=== PATIENT | male | born 1995 | race Caucasian/White ===

== ENCOUNTER 2016-09-27 04:13 | Emergency (ER) | payer BC, OTHER ==
[~2016-09-27] VITALS: Ht 182.9 cm; Wt 64.1 kg
[2016-09-27 04:17] VITALS: TEMP 36.6; Ht 182.9 cm; Wt 64.1 kg
[2016-09-27] MEDS ORDERED: METOCLOPRAMIDE HCL INJ 5 MG/ML 2 ML VIAL IV STA (04:22)
[2016-09-27] MEDS ORDERED: DiphenhydrAMINE HCL 50 MG/ML VIAL IV STA (04:22)
[2016-09-27] MEDS ORDERED: SODIUM CHLORIDE 0.9% 1000ML 2,000 ML IV STA (04:22)
[2016-09-27] MEDS ORDERED: DICYCLOMINE HCL 10 MG/ML 2 ML AMP IM ONE (04:30)
[2016-09-27 04:56] VITALS: O2SAT 98
[2016-09-27 05:01] LABS: HEMATOCRIT 46.9 % (42-52); MEAN CELL VOLUME 84.1 fL (80-100); MEAN CORPUSCULAR HEMOGLOBIN 31.2 pg (25-34); MEAN CORPUSCULAR HGB CONC 37.1 g/dl (32-36); MEAN PLATELET VOLUME 9.5 fL (7.4-10.4); PLATELET COUNT 219 K/uL (130-400); RED BLOOD COUNT 5.58 M/uL (4.7-6.1); WHITE BLOOD COUNT 15.92 K/uL (4.8-10.8)
[2016-09-27 05:19] LABS: BASO % 0.1 %; BASO ABS # 0.02 K/uL (0-0.2); BUN/CREATININE RATIO 13.7 (10-20); CALCIUM 9.6 mg/dl (8.5-10.1); COMPLETE YES; CREATININE 1.2 mg/dl (0.60-1.40); IG% 0.4 %; LYMPH % 6.5 %; LYMPH ABS # 1.03 K/uL (1.2-3.4); MONO % 8.8 %; NEUT % 82.2 %; POTASSIUM 3.3 mmol/L (3.5-5.1)
[2016-09-27] MEDS ORDERED: POTASSIUM CHLORIDE 10 MEQ TABCR PO STA (05:23)
--- NOTE | 2016-09-27 05:35 | EMERGENCY ROOM VISIT NOTE ---
History First contact with patient: 04:19 Chief Complaint: VOMITING Stated Complaint: ASTHMA ATTACK,POSSIBLE FOOD POISONING Nursing Triage Summary: Patient c/o n/v/d and abdominal pain that began around 2230 last pm. History of Present Illness The patient is a 20 year old male who presents to the Emergency Room with complaints of nausea, vomiting, diarrhea and abdominal cramping for the past few hours. [facility]. He can lead to several episodes of vomiting and diarrhea is nonbloody nonbilious nonblack and tarry in nature. No recent antibiotics. No well water. Patient complains of mild abdominal cramping with no localized pain. Patient suffers from anxiety and states he feels quite anxious with this. Patient denies chest pain , dyspnea, fever, chills, cough, congestion. Review of Systems See HPI for pertinent positives & negatives. A total of 10 systems reviewed and were otherwise negative. Past Medical/Surgical History Anxiety Social History Smoking Status: Never Smoker Alcohol Use: occasionally Drug Use: none Marital Status: single Housing Status: lives with family Occupation Status: [employer] Current/Historical Medications No Active Prescriptions or Reported Meds Allergies Coded Allergies: Amoxicillin (Unverified Allergy, Unknown, hives, 09/27/16) Physical Exam Vital Signs Date Time Temp Pulse Resp B/P Pulse Ox O2 Delivery O2 Flow Rate FiO2 09/27/16 04:56 98 Room Air 09/27/16 04:17 36.6 113 18 107/90 100 Room Air Physical Exam VITALS: Vitals are noted on the nurse's note and reviewed by myself. Vital signs stable. GENERAL: Pleasant male anxious-appearing, in no acute distress, nondiaphoretic, well-developed well-nourished. SKIN: The skin was without rashes, erythema, edema, or bruising. There is no tenting of the skin. Capillary reflex less than 2 seconds. HEAD: Normocephalic atraumatic. EARS: External auditory canals clear, tympanic membranes pearly kovacs without erythema or effusion bilaterally. EYES: Pupils equal round and reactive to light and accommodation. Conjunctivae without injection, sclerae without icterus. Extraocular movements intact. NOSE: Patent, turbinates without inflammation or discharge. No sinus tenderness. MOUTH: Mucous membranes mildly dry. Pharynx without erythema or exudate. Uvula midline. Airway patent. Tongue does not deviate. NECK: Supple without nuchal rigidity. No lymphadenopathy. No thyromegaly. Cervical spine is nontender. No JVD. HEART: Regular rate and rhythm without murmurs gallops or rubs. LUNGS: Clear to auscultation bilaterally without wheezes, rales or rhonchi. No dullness to percussion. No retractions or accessory muscle use. ABDOMEN: Positive bowel sounds x 4. Normal tympanic percussion. Soft, nontender, without masses or organomegaly. Ramirez sign negative. No guarding or rebound tenderness. No CVA tenderness MUSCULOSKELETAL: No muscle atrophy, erythema, or edema noted. NEURO: Patient was alert and oriented to person place and time. Normal sensation to light and sharp touch. No focal neurological deficits. Medical Decision & Procedures Laboratory Results 09/27/16 04:30 Red Blood Count 5.58, Mean Corpuscular Volume 84.1, Mean Corpuscular Hemoglobin 31.2, Mean Corpuscular Hemoglobin Concent 37.1, Mean Platelet Volume 9.5, Neutrophils (%) (Auto) 82.2, Lymphocytes (%) (Auto) 6.5, Monocytes (%) (Auto) 8.8, Eosinophils (%) (Auto) 2.0, Basophils (%) (Auto) 0.1, Neutrophils # (Auto) 13.09, Lymphocytes # (Auto) 1.03, Monocytes # (Auto) 1.40, Eosinophils # (Auto) 0.32, Basophils # (Auto) 0.02 09/27/16 04:30 Test 09/27/16 04:30 White Blood Count 15.92 K/uL (4.8-10.8) Red Blood Count 5.58 M/uL (4.7-6.1) Hemoglobin 17.4 g/dL (14.0-18.0) Hematocrit 46.9 % (42-52) Mean Corpuscular Volume 84.1 fL (80-100) Mean Corpuscular Hemoglobin 31.2 pg (25-34) Mean Corpuscular Hemoglobin Concent 37.1 g/dl (32-36) Platelet Count 219 K/uL (130-400) Mean Platelet Volume 9.5 fL (7.4-10.4) Neutrophils (%) (Auto) 82.2 % Lymphocytes (%) (Auto) 6.5 % Monocytes (%) (Auto) 8.8 % Eosinophils (%) (Auto) 2.0 % Basophils (%) (Auto) 0.1 % Neutrophils # (Auto) 13.09 K/uL (1.4-6.5) Lymphocytes # (Auto) 1.03 K/uL (1.2-3.4) Monocytes # (Auto) 1.40 K/uL (0.11-0.59) Eosinophils # (Auto) 0.32 K/uL (0-0.5) Basophils # (Auto) 0.02 K/uL (0-0.2) RDW Standard Deviation 36.8 fL (36.4-46.3) RDW Coefficient of Variation 12.1 % (11.5-14.5) Immature Granulocyte % (Auto) 0.4 % Immature Granulocyte # (Auto) 0.06 K/uL (0.00-0.02) Anion Gap 13.0 mmol/L (3-11) Est Creatinine Clear Calc Drug Dose 88.3 ml/min Estimated GFR () 99.6 Estimated GFR (Non- 85.9 BUN/Creatinine Ratio 13.7 (10-20) Calcium Level 9.6 mg/dl (8.5-10.1) Medications Administered Medications (Trade) Dose Ordered Sig/Giancarlo Route Start Time Stop Time Status Last Admin Dose Admin Metoclopramide HCl (Reglan Inj) 10 mg NOW STAT IV 09/27/16 04:22 09/27/16 04:23 DC 09/27/16 04:45 10 MG Dicyclomine HCl 20 mg 20 mg NOW ONCE IM 09/27/16 04:30 09/27/16 04:31 DC 09/27/16 04:30 20 MG Sodium Chloride (Nss 1000ml) 2,000 ml @ 999 mls/hr Q2H1M STAT IV 09/27/16 04:22 09/27/16 06:22 09/27/16 04:54 999 MLS/HR Diphenhydramine HCl (Benadryl Inj) 12.5 mg NOW STAT IV 09/27/16 04:22 09/27/16 04:23 DC 09/27/16 04:46 12.5 MG ED Course Prior records/ancillary studies reviewed. Triage Nursing notes reviewed. The patient's history was concerning for nausea, vomiting, diarrhea, and abdominal pain. Differential diagnosis: Etiologies such as gastroenteritis, food borne illness, infections, appendicitis , diverticulitis, inflammatory bowel disease, obstruction, GI bleed, biliary pathology, as well as others were entertained. Physical examination findings: As above. Abdominal examination revealed no tenderness. Vital signs reviewed and revealed stable. ER treatment provided: IV hydration 2 L NSS. Reglan, Benadryl, Bentyl On reassessment the patient felt better. Patient was tolerating p.o. intake. Diagnostics interpretation by me: The labs revealed leukocytosis most likely marginalization from vomiting. Hypokalemia and this was replaced orally This appears to be consistent with vomiting and diarrhea. Patient felt much better after being medicated as above. He was able to tolerate by mouth fluids and ambulate without difficulties. He was advised to do clear liquid diet today and then progress as tolerated to bland diet tomorrow. He was advised to follow-up with health services in a few days or here in the ER sooner for abdominal pain, fevers, vomiting, worsening signs or symptoms or as needed. Patient did not have acute abdomen on exam. By the evaluation outlined above emergent etiologies such as appendicitis, diverticulitis, obstruction, cardiac sources, mesenteric ischemia, aortic pathology, inflammatory bowel disease, renal colic, PUD, biliary pathology, UTI, as well as others were deemed relatively unlikely. The pt informed about the findings as listed above. All questions were answered and pleased with the treatment. Return instructions were outlined and the patient was discharged in stable condition. Outpatient prescription management: Zofran Referral: The patient was referred to their primary care physician for follow-up in 2 to 3 days for a recheck of the current condition. Medical Decision As above Impression Primary Impression: Nausea, vomiting, and diarrhea Departure Information Dispostion Home / Self-Care Condition GOOD Prescriptions No Active Prescriptions or Reported Meds Referrals [facility] (PCP) Patient Instructions A Signature Page, [facility] Additional Instructions DO NOT drive, drink alcohol, operate machinery, or perform dangerous activities today. You were given medications in the ER that can affect your ability to safely function or operate a vehicle. Zofran(odansetron) tablets 4mg: Take one and allow it to dissolve in your mouth every four to six hours as needed for nausea or vomiting. Ibuprofen(Motrin, Advil) may be used for fever or pain. Use 600mg every six hours as needed. Take with food. Avoid using more than 2400mg in a 24 hour period. Do not use 2400mg per day for more than three consecutive days without physician direction. Prolonged inappropriate use can lead to stomach upset or ulcers. (AND/OR) Acetaminophen(Tylenol) may be used for fever or pain. Use 1000mg every six hours as needed. Avoid using more than 3000mg in a 24 hour period. Rest and drink plenty of fluids as tolerated. Slow sips of water or sports drinks are recommended instead of large amounts all at once. Continue current medications. Once your stomach is settled start with a clear liquid diet (jello, soup broth, etc.) and then advance as tolerated. You should avoid full, heavy meals for about 24 hrs from the time your symptoms resolved. Return to the ER for persistent vomiting, fevers, abdominal pain, chest pains, difficulty breathing, black or bloody stools, worsening of your condition, or as needed. Follow up with your primary physician in 2-3 days for a recheck of your current condition.
[2016-09-27] MEDS ORDERED: ONDANSETRON HOME PACK 4MG OD TAB PO ONE (05:45)
[2016-09-27 06:53] VITALS: BP 129/65; PULSE 98; O2SAT 100
== END 2016-09-27 07:05 | disposition home or self-care (01) ==
LOC: C.EDB 04:15 → C.EDA 07:05
DX: R11.2 Nausea with vomiting, unspecified (principal); R19.7 Diarrhea, unspecified; E87.6 Hypokalemia